=== PATIENT | female | born 1965 | race Caucasian/White ===

== ENCOUNTER 2021-03-27 20:28 | Emergency (ER) | payer OTHER ==
[~2021-03-27] VITALS: Ht 167.6 cm; Wt 56.7 kg
--- NOTE | 2021-03-28 16:26 | EKG ---
[facility] [address] [place], [place] [address] Signed Sinus rhythm with marked sinus arrhythmia Septal infarct , age undetermined Abnormal ECG No previous ECGs available Confirmed by VINOD ARREDONDO MD ([id number] on 03/28/2021 4:26:46 PM Electronically Signed By: VINOD ARREDONDO MD 03/28/21 1626 PATIENT NAME: KHARI BUSTILLO Electrocardiogram DATE OF : 63 PHYSICIAN: VINOD ARREDONDO MD REPORT #: [id number] REPORT IS CONFIDENTIAL AND NOT TO BE RELEASED WITHOUT AUTHORIZATION
== END 2021-03-27 22:38 | disposition home or self-care (01) ==
LOC: ED 20:28
DX: R07.89 Other chest pain (principal); F17.200 Nicotine dependence, unspecified, uncomplicated
CPT/HCPCS: 71045; 80053; 84484; 85025; 93005; 93010; 96374; 99285-25; J1885